=== PATIENT | male | born 1960 | race Hispanic/Latino ===

== ENCOUNTER 2018-09-22 05:45 | Inpatient (IN) | payer BC ==
[2018-09-19 14:14] LABS: EOSINOPHILS % (AUTO) 0.9 % (0.0-8.0); HEMATOCRIT 49.1 % (42-54); LYMPHOCYTES % (AUTO) 24.4 % (21.0-51.0); MEAN CORPUSCULAR HEMOGLOBIN 29.6 pg (27.0-33.0); MEAN CORPUSCULAR HGB CONC 34.3 g/dL (32.0-36.0); MEAN CORPUSCULAR VOLUME 86.2 fL (79-99); MONOCYTES % (AUTO) 6.8 % (3.0-13.0); NEUTROPHILS % (AUTO) 66.9 % (40.0-77.0); NUCLEATED RED BLOOD CELLS 0.1 % (0.0-0.19); PLATELET COUNT (AUTO) 228 K/uL (130-400); RED BLOOD CELL COUNT(AUTO) 5.69 MIL/uL (4.50-6.20); RED CELL DISTRIBUTION WIDTH 14.1 % (11.0-15.5); WHITE BLOOD COUNT (AUTO) 8.2 K/uL (4.8-10.8)
[2018-09-19 14:20] LABS: APPEARANCE,URINE Cloudy (CLEAR); BILIRUBIN,URINE Negative (NEGATIVE); COLOR,URINE Yellow (YELLOW); GLUCOSE, URINE (UA) >=1000 mg/dL (NEGATIVE); KETONES,URINE Trace mg/dL (NEGATIVE); LEUKOCYTE ESTERASE ,URINE Trace (NEGATIVE); NITRATE,URINE Negative (NEGATIVE); OCCULT BLOOD,URINE Negative (NEGATIVE); PROTEIN,URINE Negative (NEGATIVE)
[2018-09-19 14:21] VITALS: BP 132/72
[2018-09-19 14:21] LABS: CREATININE 0.9 mg/dL (0.5-1.5); POTASSIUM 4.3 mmol/L (3.5-5.1)
[2018-09-19 14:23] LABS: INR 0.99 (0.85-1.15); PARTIAL THROMBOPLASTIN TIME 26.4 SEC (26.3-35.5); PROTHROMBIN TIME 10.4 SEC (9.6-11.6)
[2018-09-19 14:37] VITALS: BP 132/72
[2018-09-19 14:57] LABS: AMORPHOUS SEDIMENT,UR Few /LPF (None Seen); BACTERIA,URINE None Seen /HPF (None Seen); RBC,URINE None Seen /HPF (0-1); SQUAMOUS EPITHELIAL CELL,UR None Seen /HPF (0-2); WBC,URINE 0-1 /HPF (0-1)
--- NOTE | 2018-09-19 17:04 | NUR ---
Spoke to Mehnaz Maloney inpatient coder (addiction counselor) and report ua has glucose of greater than 1000, no new orders.
[2018-09-22] VITALS (8 sets, daily range): BP systolic 117–154; BP diastolic 69–78
[~2018-09-22] VITALS: Ht 166.4 cm; Wt 77.8 kg
[~2018-09-22 05:45] MED LIST: CARV3.12 PO; GLYB5TAB8 PO; METF-444 PO
--- NOTE | 2018-09-22 06:10 | NUR ---
PRE-PROCEDURE RECEIVED SCHEDULED ADMISSION TO DAY 14 FOR SCHEDULED LHC. PT ACCOMPANIED BY . AWAKE IN NO ACUTE DISTRESS. CONNECTED TO CONTINUOUS CARDIOPULMONARY MONITORING. DENIES PAIN AT PRESENT TIME.
[2018-09-22] MEDS ORDERED: SODIUM CHLORIDE 0.9% 1000ML 1,000 ML IV ONE (06:23)
[2018-09-22] MEDS ORDERED: LISI10TA7 PO (06:50)
[2018-09-22] MEDS ORDERED: ASPI-555 PO (06:50)
[2018-09-22] MEDS ORDERED: SODIUM CHLORIDE 0.9% 1000ML 1,000 ML IV SCH (08:00)
[2018-09-22] MEDS ORDERED: IOHEXOL 350 MG/ML 100ML INFUS..BTL IV ONE (08:09)
[2018-09-22] MEDS ORDERED: IOHEXOL-350 50ML VIAL IV ONE (08:09)
[2018-09-22] MEDS ORDERED: LIDOCAINE HCL 2% 20ML ONE (08:09)
[2018-09-22] MEDS ORDERED: NITROGLYCERIN 5 MG/ML 10 ML VIAL IV ONE (08:09)
--- NOTE | 2018-09-22 08:18 | NUR ---
PROCEDURE TRANSFERRED TO HOUSING INSPECTOR BY VINNIE SELLERS RN VIA BED FOR [facility].
[2018-09-22] MEDS ORDERED: HEPARIN SODIUM 1000UNIT/ML 10ML VIAL ONE (08:44)
[2018-09-22] MEDS ORDERED: DEXTROSE 50%-WATER 50 ML DISP.SYRIN IV PRN ×2 (09:15→17:15)
[2018-09-22] MEDS ORDERED: GLUCAGON 1MG KIT 1 MG ML IM PRN ×2 (09:15→17:15)
--- NOTE | 2018-09-22 09:18 | NUR ---
POST-PROCEDURE RECEIVED BACK FROM MOLD STAMPER AND REPAIRER VIA BED S/P [facility] WITH PENDING SURGICAL CONSULT. AWAKE IN NO ACUTE DISTRESS. CONNECTED TO CONTINUOUS CARDIOPULMONARY MONITORING. CATH SITE WITH ANGIOSEAL TO RIGHT FEMORAL CLEAN, DRY, AND INTACT;SITE SOFT, NON-TENDER. BED IN LOWEST POSITION, CALL LIGHT W/IN REACH, AND SIDE RAILS UP X2. Addendum: 09/22/18 at 0950 by CASISDY ROSARIO RN RN REINFORCED EDUCATION REGARDING KEEPING RIGHT LEG STRAIGHT AND NOT RAISING HEAD UP. VERBALIZED UNDERSTANDING.
--- NOTE | 2018-09-22 10:15 | NUR ---
CONSULT DR. COTTER IN TO SEE PATIENT. PLAN OF CARE DISCUSSED WITH PT IN [place]. PLAN IS TO ADMIT PT FOR CABG IN AM. TELEPHONE SERVICE ADVISER NOTIFIED.
--- NOTE | 2018-09-22 10:25 | NUR ---
CONSULT DR. JOHNSON ANSWERING SERVICE CALLED FOR CONSULT.
--- NOTE | 2018-09-22 11:15 | NUR ---
REPORT REPORT CALLED TO MIRIAM SALTER USING [employer]. VERBALIZED UNDERSTANDING. INFORMED PT IS TO REMAIN NPO FOR SURGERY TODAY. Addendum: 09/22/18 at 1137 by CASSIDY ROSARIO RN RN NOTIFIED THAT DR. JOHNSON ANSWERING SERVICE WAS CALLED, BUT AWAITING RETURN PHONE CALL.
--- NOTE | 2018-09-22 11:18 | NUR ---
TRANSFER TRANSFERRED TO ROOM 220 VIA BED. AWAKE IN NO ACUTE DISTRESS. CATH SITE WITH ANGIOSEAL CLEAN, DRY, AND INTACT. SITE SOFT, NON-TENDER. DENIES PAIN.
--- NOTE | 2018-09-22 11:30 | NUR ---
ASSESSMENT ENCOUNTERED PT A&OX3, CALM COOPERATIVE AND DOES NOT APPEAR TO BE IN ANY DISTRESS NOR ANY NEURO DEFICITS PRESENT. RT GROIN SOFT NONTENDER WITH NO OOZING OR HEMATOMA PRESENT. DP/PT PULSES PALPABLE. PT ON BEDREST UNTIL 1230. CALL LIGHT WITHIN REACH, FAMILY AT BEDSIDE.
--- NOTE | 2018-09-22 13:00 | NUR ---
BEDREST COMPLETE RT GROIN SOFT NONTENDER WITH NO OOZING OR HEMATOMA PRESENT. DP/PT PULSES PALPABLE. PT IS AMBULATORY, GAIT STEADY AND STRONG WITH STAND BY ASSIST. CALL LIGHT WITHIN REACH, FAMILY AT BEDSIDE.
[2018-09-22] MEDS ORDERED: ACETAMINOPHEN 325 MG TAB PO PRN (17:15)
[2018-09-22] MEDS ORDERED: ONDANSETRON HCL 4 MG/2 ML VIAL IVP PRN (17:15)
[2018-09-22] MEDS ORDERED: TRAMADOL HCL 50 MG TABLET PO PRN ×2 (17:15)
[2018-09-22] MEDS: INSULIN HUMULIN R 100 UNIT/ML 3ML SQ SCH ×2 (17:26→20:15)
[2018-09-22] MEDS ORDERED: INSULIN HUMULIN R 100 UNIT/ML 3ML SQ SCH (21:00)
[2018-09-23] VITALS (27 sets, daily range): BP systolic 99–169; BP diastolic 51–86
[2018-09-23 05:12] LABS: HEMATOCRIT 45.1 % (42-54); MEAN CORPUSCULAR HGB CONC 33.8 g/dL (32.0-36.0); MEAN CORPUSCULAR VOLUME 85.7 fL (79-99); NUCLEATED RED BLOOD CELLS 0.1 % (0.0-0.19); PLATELET COUNT (AUTO) 220 K/uL (130-400); RED BLOOD CELL COUNT(AUTO) 5.26 MIL/uL (4.50-6.20); RED CELL DISTRIBUTION WIDTH 13.8 % (11.0-15.5); WHITE BLOOD COUNT (AUTO) 7.9 K/uL (4.8-10.8)
[2018-09-23 05:17] LABS: HEMOGLOBIN A1C 9.7 % (4.0-6.0)
[2018-09-23 05:21] LABS: INR 1.02 (0.85-1.15); PARTIAL THROMBOPLASTIN TIME 28.2 SEC (26.3-35.5); PROTHROMBIN TIME 10.7 SEC (9.6-11.6)
[2018-09-23 05:24] LABS: POTASSIUM 3.5 mmol/L (3.5-5.1)
[2018-09-23] MEDS: INSULIN HUMULIN R 100 UNIT/ML 3ML SQ SCH ×2 (05:27→11:30)
--- NOTE | 2018-09-23 07:30 | NUR ---
ASSESSMENT ENCOUNTERED PT A&OX3, CALM COOPERATIVE AND DOES NOT APPEAR TO BE IN ANY DISTRESS NOR ANY NEURO DEFICITS PRESENT. PT DENIES PAIN, SOB, NAUSEA. RT GROIN SOFT NONTENDER WITH NO OOZING OR HEMATOMA PRESENT. DP/PT PULSES PALPABLE. PT IS NPO FOR PENDING CABG BY DR COTTER. CALL LIGHT WITHIN REACH, FAMILY AT BEDSIDE.
[2018-09-23] MEDS ORDERED: ASPIRIN 81MG TAB.CHEW PO SCH (09:00)
[2018-09-23] MEDS ORDERED: CARVEDILOL 6.25 MG TABLET PO SCH (09:00)
[2018-09-23] MEDS ORDERED: LISINOPRIL 10 MG TABLET PO SCH (09:00)
[2018-09-23] MEDS ORDERED: NITROGLYCERIN 50 MG/D5% WATER 1 BOT ONE (11:40)
[2018-09-23] MEDS ORDERED: EPINEPHRINE 1 MG/ML 30ML VIAL IJ ONE (11:40)
[2018-09-23] MEDS ORDERED: SODIUM CHLORIDE 0.9% 1000ML 1,000 ML IV ONE (12:32)
[2018-09-23] MEDS: CEFAZOLIN SODIUM 1 GM VIAL IVP PRN ×3 (12:35→12:55)
[2018-09-23] MEDS ORDERED: OCTYL 2-CYANOACRYLATE 1 EACH TP ONE (12:49)
[2018-09-23] MEDS ORDERED: PAPAVERINE HCL 30 MG/ML 2ML VIAL ONE (12:49)
[2018-09-23] MEDS ORDERED: BACITRACIN 50,000 UNIT VIAL ONE (12:49)
[2018-09-23] MEDS ORDERED: LIDOCAINE PF 2% 5ML ABBOJECT ONE (12:52)
[2018-09-23] MEDS ORDERED: ESMOLOL HCL 10 MG/ML 10 ML VIAL ONE (12:52)
[2018-09-23] MEDS ORDERED: PROTAMINE SULFATE 10 MG/ML 25ML VIAL IV ONE (12:52)
[2018-09-23] MEDS ORDERED: SODIUM BICARB 50MEQ 50ML VIAL ONE (12:53)
[2018-09-23] MEDS ORDERED: HEPARIN SODIUM 1000UNIT/ML 10ML VIAL ONE (12:53)
[2018-09-23] MEDS ORDERED: EPINEPHRINE 1 MG/ML AMPULE ONE (12:53)
[2018-09-23] MEDS ORDERED: NOREPINEPHRINE BITARTRATE 1 MG/1 ML ML IV ONE (12:53)
[2018-09-23] MEDS ORDERED: AMINOCAPROIC ACID 250 MG/ML 20 ML VIAL IV ONE (12:53)
[2018-09-23] MEDS ORDERED: PROPOFOL 10 MG/ML 20ML VIAL IV ONE (12:54)
[2018-09-23] MEDS ORDERED: ROCURONIUM 10MG/1ML SYR 10 MG/ML ML ONE (12:54)
[2018-09-23] MEDS ORDERED: MIDAZOLAM HCL 1 MG/ML 5ML VIAL ONE (12:54)
[2018-09-23] MEDS ORDERED: FENTANYL CITRATE PF 50 MCG/1 ML 20ML VIAL IJ ONE (12:54)
[2018-09-23 13:16] LABS: ABG BASE EXCESS 0.1 mmol/L (-2.0-3.0); ABG HCO3 23.3 mmol/L (21.0-28.0); ABG OXYGEN SATURATION 99.3 % (95.0-99.0); ABG PCO2 34 mmHg (35-48)
[2018-09-23 14:48] LABS: ABG BASE EXCESS -4.9 mmol/L (-2.0-3.0); ABG HCO3 18.8 mmol/L (21.0-28.0); ABG OXYGEN SATURATION 99.3 % (95.0-99.0); ABG PCO2 31 mmHg (35-48)
[2018-09-23] MEDS ORDERED: SODIUM CHLORIDE 0.9% 500ML 500 ML IV SCH (14:53)
[2018-09-23] MEDS ORDERED: POTASSIUM PHOS 15 mMOL+NS250ML 250 ML IV PRN (15:00)
[2018-09-23] MEDS ORDERED: AMINOCAPROIC ACID 15,000 MG in SODIUM CHLORIDE 0.9% 250 ML IV SCH (15:00)
[2018-09-23] MEDS ORDERED: ACETAMINOPHEN 325 MG TAB PO PRN (15:00)
[2018-09-23] MEDS ORDERED: PROPOFOL 1000 MG/100 ML 100 ML IV PRN (15:00)
[2018-09-23] MEDS ORDERED: SODIUM CHLORIDE 0.9% 1000ML 1,000 ML IV SCH (15:00)
[2018-09-23] MEDS ORDERED: NOREPINEPHRINE 4MG/NS 250ML 250 ML IV PRN (15:00)
[2018-09-23] MEDS ORDERED: MORPHINE SULFATE 4 MG/1ML SYG IV PRN (15:00)
[2018-09-23] MEDS ORDERED: HYDROCODONE/ACETAMINOPHEN 5/325 MG TAB PO PRN (15:00)
[2018-09-23] MEDS ORDERED: MORPHINE SULFATE 2 MG/ML 1ML SYG IV PRN (15:00)
[2018-09-23] MEDS ORDERED: EPINEPHRINE 8 MG in DEXTROSE 5%-WATER 250 ML IV PRN (15:00)
[2018-09-23] MEDS ORDERED: ONDANSETRON HCL 4 MG/2 ML VIAL IV PRN (15:00)
[2018-09-23] MEDS ORDERED: TRAMADOL HCL 50 MG TABLET PO PRN (15:00)
[2018-09-23] MEDS ORDERED: DEXTROSE 50%-WATER 50 ML DISP.SYRIN IV PRN (15:00)
[2018-09-23] MEDS ORDERED: SODIUM CHLORIDE 0.9% 250 ML IV PRN (15:00)
[2018-09-23] MEDS ORDERED: ALBUMIN (HUMAN) 5% 250 ML IV PRN (15:00)
[2018-09-23] MEDS ORDERED: ACETAMINOPHEN 650 MG SUPPOSITORY RC PRN (15:00)
[2018-09-23] MEDS ORDERED: NITROGLYCERIN 50 MG/D5% WATER 250 BOT IV SCH (15:00)
[2018-09-23] MEDS ORDERED: GLUCAGON 1MG KIT 1 MG ML IM PRN (15:00)
[2018-09-23] MEDS ORDERED: SODIUM CHLORIDE 0.9% 10 ML VIAL IVP PRN (15:00)
--- NOTE | 2018-09-23 15:23 | NUR ---
RECEIVED PT FROM OR, POST CABG X3. ASSESSMENT COMPLETED NOTED. PT ORALLY INTUBATED,8.0 ETT AT 23CM LIP, AT PRESCRIBED VENT SETTINGS. SURGICAL DRESSINGS DRY AND INTACT. CHEST TUBE X 1 WITH SCANT SANGUINOUS OUTPUT, NO AIR LEAK NOTED. PT SR 74 ON BEDSIDE MONITOR WITH NO ECTOPY NOTED. HEMODYNAMICS NOTED IN EMR. FC TO GRAVITY WITH CLEAR YELLOW OUTPUT. P RT IJ CORDIS INTACT. PT ON AMICAR AT 50 ML/HR, LEVOPHED DRIP AT 2 MCGS/MIN. LEFT RADIAL ARTERIAL LINE INTACT. ALL LINES LEVELED AND CALIBRATED AND WITH OPTIMAL WAVEFORM. PT UNABLE TO OPEN EYES OR FOLLOW COMMANDS AT THIS TIME. NO S/S OF PAIN NOTED. LABS AND CXR COMPLETED ORDERED. BED LOCKED AND LOW. MONITORS ON AND ALARMS AUDIBLE.
[2018-09-23 15:51] LABS: HEMATOCRIT 37.4 % (42-54); MEAN CORPUSCULAR HEMOGLOBIN 28.7 pg (27.0-33.0); MEAN CORPUSCULAR HGB CONC 33.8 g/dL (32.0-36.0); MEAN CORPUSCULAR VOLUME 85.1 fL (79-99); PLATELET COUNT (AUTO) 165 K/uL (130-400); RED CELL DISTRIBUTION WIDTH 13.9 % (11.0-15.5); WHITE BLOOD COUNT (AUTO) 14.9 K/uL (4.8-10.8)
[2018-09-23] MEDS: INSULIN REGULAR, HUMAN 3ML 100 UNIT in SODIUM CHLORIDE 0.9% 99 ML IV SCH ×2 (16:01)
[2018-09-23 16:04] LABS: CREATININE 0.7 mg/dL (0.5-1.5); INR 1.13 (0.85-1.15); MAGNESIUM 1.3 mg/dL (1.80-2.40); PARTIAL THROMBOPLASTIN TIME 25.4 SEC (26.3-35.5); POTASSIUM 3.7 mmol/L (3.5-5.1); PROTHROMBIN TIME 11.8 SEC (9.6-11.6)
[2018-09-23] MEDS: CALCIUM GLUCONATE 1 GM in SODIUM CHLORIDE 0.9% 50 ML IV PRN ×4 (16:05→22:38)
[2018-09-23 16:07] LABS: ABG BASE EXCESS -1.3 mmol/L (-2.0-3.0); ABG HCO3 21.8 mmol/L (21.0-28.0); ABG OXYGEN SATURATION 98.1 % (95.0-99.0); ABG PCO2 32 mmHg (35-48)
[2018-09-23] MEDS: SODIUM BICARB 50MEQ 50ML VIAL IV PRN ×2 (16:09→17:20)
[2018-09-23] MEDS: MAGNESIUM 2GM PREMIX 50ML 50 ML IV PRN (16:20)
--- NOTE | 2018-09-23 16:44 | NUR ---
PATIENT'S FAMILY IN FOR POST OP VISIT AT [id number]. EXCHANGED PHONE NUMBERS WITH PATIENT'S DESTINEE ([phone]). ALL QUESTIONS ABOUT PATIENT'S CONDITION, PLAN OF CARE AND VISITING ANSWERED. PATIENT MOVING BUE AND NODS YES/NO. FAMILY WILL RETURN TOMORROW.
[2018-09-23] MEDS ORDERED: HEPARIN SODIUM 1000UNIT/ML 10ML VIAL IV ONE (16:57)
[2018-09-23] MEDS: POTASSIUM CHLORIDE 20MEQ/100ML 100 ML IV PRN ×3 (17:04→23:28)
[2018-09-23 17:12] LABS: ABG BASE EXCESS -2.3 mmol/L (-2.0-3.0); ABG HCO3 20.6 mmol/L (21.0-28.0); ABG OXYGEN SATURATION 95.2 % (95.0-99.0); ABG PCO2 31 mmHg (35-48)
[2018-09-23 18:50] LABS: ABG BASE EXCESS 1.9 mmol/L (-2.0-3.0); ABG HCO3 24.5 mmol/L (21.0-28.0); ABG OXYGEN SATURATION 98.5 % (95.0-99.0); ABG PCO2 33 mmHg (35-48)
[2018-09-23 19:59] LABS: ABG BASE EXCESS 2.7 mmol/L (-2.0-3.0); ABG HCO3 25.2 mmol/L (21.0-28.0); ABG OXYGEN SATURATION 98.7 % (95.0-99.0); ABG PCO2 33 mmHg (35-48)
[2018-09-23] MEDS: CEFAZOLIN SODIUM 1 GM VIAL IV SCH (20:29)
[2018-09-23] MEDS: FAMOTIDINE/PF 20 MG/2 ML VIAL IV SCH (20:30)
[2018-09-23 21:05] LABS: ABG BASE EXCESS 1.6 mmol/L (-2.0-3.0); ABG HCO3 25.4 mmol/L (21.0-28.0); ABG OXYGEN SATURATION 98.6 % (95.0-99.0); ABG PCO2 37 mmHg (35-48)
--- NOTE | 2018-09-23 21:17 | NUR ---
Extubation Extubation protocol was followed. Patient remained on ventilator Setting of SIMV rate of 4, Tidal Volume:650, PEEP:5, PS:10, Fio2:35% as per protocol Patient was hemodynamically stable. Vital signs remained within desired ranges, off al drips. After an hour, ABG was done and was within desired ranges(see labs). Patient remained awake, able to follow commands, sustain head lift, and equally strong handgrip. RT Javi at bedside to perform weaning readiness exercises. Patient Negative inspiratory force performed was -29.7, and vital capacity was 1100. Patient was given instructions on extubation and what was expected of him after extubation;(patient nodded). At 2117 patient was extubated, secretions were suction, and patient was immediately placed on cool aerosol mask with fio2 at 35%. Patient remained within desired/baseline vital signs, continued to saturate 98-100%, and remained breathing at a rate of 16-20breaths per minute. Will continue to monitor patient closely and follow up with ABG after 1 hr.
[2018-09-23 23:00] LABS: ABG BASE EXCESS 0.2 mmol/L (-2.0-3.0); ABG HCO3 25.1 mmol/L (21.0-28.0); ABG OXYGEN SATURATION 98.2 % (95.0-99.0); ABG PCO2 42 mmHg (35-48)
[2018-09-24] VITALS (20 sets, daily range): BP systolic 116–159; BP diastolic 55–77
[2018-09-24] MEDS: MAGNESIUM 2GM PREMIX 50ML 50 ML IV PRN (01:15)
[2018-09-24] MEDS: CEFAZOLIN SODIUM 1 GM VIAL IV SCH ×2 (04:18→12:23)
[2018-09-24 07:44] LABS: ABG BASE EXCESS 1.1 mmol/L (-2.0-3.0); ABG HCO3 25.3 mmol/L (21.0-28.0); ABG OXYGEN SATURATION 98.4 % (95.0-99.0); ABG PCO2 39 mmHg (35-48)
[2018-09-24 08:04] LABS: HEMATOCRIT 42.9 % (42-54); MEAN CORPUSCULAR HEMOGLOBIN 29.2 pg (27.0-33.0); MEAN CORPUSCULAR HGB CONC 34.3 g/dL (32.0-36.0); MEAN CORPUSCULAR VOLUME 85.1 fL (79-99); PLATELET COUNT (AUTO) 194 K/uL (130-400); RED BLOOD CELL COUNT(AUTO) 5.04 MIL/uL (4.50-6.20); RED CELL DISTRIBUTION WIDTH 14.1 % (11.0-15.5); WHITE BLOOD COUNT (AUTO) 13.7 K/uL (4.8-10.8)
[2018-09-24 08:36] LABS: CREATININE 0.7 mg/dL (0.5-1.5); MAGNESIUM 2.4 mg/dL (1.80-2.40); PHOSPHORUS 4.2 mg/dL (2.5-4.9); POTASSIUM 3.7 mmol/L (3.5-5.1)
[2018-09-24 08:54] LABS: PARTIAL THROMBOPLASTIN TIME 23.6 SEC (26.3-35.5); PROTHROMBIN TIME 10.5 SEC (9.6-11.6)
[2018-09-24] MEDS: FAMOTIDINE/PF 20 MG/2 ML VIAL IV SCH ×2 (08:59→20:07)
[2018-09-24] MEDS ORDERED: METOPROLOL TARTRATE 25 MG TAB PO SCH ×2 (09:00→09:45)
[2018-09-24] MEDS: ATORVASTATIN CALCIUM 40 MG TABLET PO SCH (09:10)
[2018-09-24] MEDS: ASPIRIN 81MG TAB.CHEW PO SCH (09:10)
--- NOTE | 2018-09-24 09:30 | NUR ---
MD ROUNDS DR. TORRES IN TO SEE PATIENT. MD REVIEWED CHART AND VIEWED CXR. NEW ORDERS RECEIVED. UPDATED ON NEW ORDERS FROM DR. HUSTON. CHANGES MADE TO METOPROLOL BY DR. TORRES. PATIENT UP DATED ON POC. WILL CONT TO MONITOR.
--- NOTE | 2018-09-24 10:16 | NUR ---
AIDA Ramsey met with pt who lives in [place] with his Mary Ann [phone]. Pt works, is independent, drives, no DME or HH. Sees Dr Odell and uses [facility]. Plan is home at [place] Addendum: 09/24/18 at 1017 by JULIO REESE Amended: Links added.
[2018-09-24] MEDS: CALCIUM GLUCONATE 1 GM in SODIUM CHLORIDE 0.9% 50 ML IV PRN ×2 (10:33→10:56)
[2018-09-24] MEDS: TRAMADOL HCL 50 MG TABLET PO PRN ×2 (10:41→23:21)
[2018-09-24] MEDS: METOCLOPRAMIDE 10 MG/2 ML VIAL IVP SCH ×3 (12:23→20:07)
[2018-09-24] MEDS: POTASSIUM CHLORIDE 20MEQ/100ML 100 ML IV PRN (16:45)
--- NOTE | 2018-09-24 16:50 | NUR ---
PT NOTED NOT TO BE DRINKING WATER. STATES HE WAS TOLD NOT TO DRINK TOO MUCH WATER. INTAKE HAS BEEN POOR, PATIENT IS ENCOURAGED TO DRINK WATER.
[2018-09-24] MEDS: INSULIN REGULAR, HUMAN 3ML 100 UNIT in SODIUM CHLORIDE 0.9% 99 ML IV SCH ×2 (17:05)
[2018-09-24] MEDS: METOPROLOL TARTRATE 25 MG TAB PO SCH (20:08)
[2018-09-25] VITALS (23 sets, daily range): BP systolic 109–144; BP diastolic 61–80
[2018-09-25 04:29] LABS: HEMATOCRIT 42.8 % (42-54); MEAN CORPUSCULAR HEMOGLOBIN 28.7 pg (27.0-33.0); MEAN CORPUSCULAR HGB CONC 33.6 g/dL (32.0-36.0); MEAN CORPUSCULAR VOLUME 85.6 fL (79-99); NUCLEATED RED BLOOD CELLS 0.1 % (0.0-0.19); PLATELET COUNT (AUTO) 180 K/uL (130-400); RED CELL DISTRIBUTION WIDTH 14.2 % (11.0-15.5)
[2018-09-25 04:40] LABS: CREATININE 0.8 mg/dL (0.5-1.5); POTASSIUM 3.5 mmol/L (3.5-5.1)
[2018-09-25] MEDS: POTASSIUM CHLORIDE 20MEQ/100ML 100 ML IV PRN ×2 (05:30→08:09)
[2018-09-25] MEDS: TRAMADOL HCL 50 MG TABLET PO PRN ×2 (05:56→17:31)
[2018-09-25] MEDS: INSULIN HUMULIN R 100 UNIT/ML 3ML SQ SCH ×4 (07:30→21:20)
[2018-09-25] MEDS: METOPROLOL TARTRATE 25 MG TAB PO SCH ×2 (08:10→20:58)
[2018-09-25] MEDS: ASPIRIN 81MG TAB.CHEW PO SCH (08:10)
[2018-09-25] MEDS: METOCLOPRAMIDE 10 MG/2 ML VIAL IVP SCH ×3 (08:10→16:21)
[2018-09-25] MEDS: ATORVASTATIN CALCIUM 40 MG TABLET PO SCH (08:10)
[2018-09-25] MEDS: FAMOTIDINE/PF 20 MG/2 ML VIAL IV SCH ×2 (08:44→20:58)
--- NOTE | 2018-09-25 16:43 | NUR ---
MD ROUNDS DR. COTTER IN TO SEE PATIENT. MD REVIEWED CHEST XRAY AND SPOKE WITH PATIENT. INFORMED HIM DM MEDS NEED TO BE RESTARTED AND HE NOTED PT'S HEART RATE IN THE LOW 100s. MD MADE AWARE PATIENT IS ALREADY ON METOPROLOL 25 MG PO BID. INSTRUCTED TO CONTINUE WITH DOSE. NEW ORDERS RECEIVED TO BE CARRIED OUT. PT MADE AWARE OF POC. F/C REMOVED WITHOUT COMPLICATIONS. PT IS DTV BY MN. PT VOICED UNDERSTANDING.
[2018-09-25] MEDS: LOSARTAN 50 MG TABLET PO SCH (20:57)
[2018-09-25] MEDS ORDERED: FUROSEMIDE 20 MG TABLET ONE (21:46)
[2018-09-25] MEDS: FUROSEMIDE 20 MG TABLET PO SCH (21:47)
--- NOTE | 2018-09-25 22:30 | NUR ---
Chest tube removed as ordered. Patient tolerated procedure well. Will continue to monitor patient closely.
[2018-09-26] VITALS (11 sets, daily range): BP systolic 98–129; BP diastolic 62–81
--- NOTE | 2018-09-26 00:38 | NUR ---
Moderate amount of bleeding noted after removal of CVL to the right jugular vein. Topical hemostat dressing applied. Applied pressure to bleeding site for about one hour and 30 minutes. Bleeding decreased, patient is hemodynamically stable. Will continue to monitor patient closely.
[2018-09-26 03:09] LABS: CREATININE 0.8 mg/dL (0.5-1.5); POTASSIUM 3.4 mmol/L (3.5-5.1)
[2018-09-26 03:17] LABS: HEMATOCRIT 40.7 % (42-54); MEAN CORPUSCULAR HEMOGLOBIN 29.8 pg (27.0-33.0); MEAN CORPUSCULAR HGB CONC 35.2 g/dL (32.0-36.0); MEAN CORPUSCULAR VOLUME 84.6 fL (79-99); NUCLEATED RED BLOOD CELLS 0.1 % (0.0-0.19); PLATELET COUNT (AUTO) 177 K/uL (130-400); RED BLOOD CELL COUNT(AUTO) 4.81 MIL/uL (4.50-6.20); RED CELL DISTRIBUTION WIDTH 13.8 % (11.0-15.5); WHITE BLOOD COUNT (AUTO) 12.7 K/uL (4.8-10.8)
[2018-09-26 03:42] LABS: INR 1.02 (0.85-1.15); PARTIAL THROMBOPLASTIN TIME 34.7 SEC (26.3-35.5); PROTHROMBIN TIME 10.7 SEC (9.6-11.6)
[2018-09-26] MEDS: INSULIN HUMULIN R 100 UNIT/ML 3ML SQ SCH ×4 (06:16→20:25)
[2018-09-26] MEDS ORDERED: ENOXAPARIN SODIUM 30 MG/0.3 ML SQ SCH ×2 (09:00→21:00)
--- NOTE | 2018-09-26 09:05 | NUR ---
DRSG TO RIGHT NECK AREA NOTED TO BE BLEEDING. DRSG REMOVED AND MANUAL PRESSURE APPLIED WITH THE USE OF A D-STAT. MANUAL PRESSURE APPLIED FOR 30 MIN. NO FURTHER BLEEDING NOTED. D-STAT DRESSING SECURED. INSTRUCTED PT. ON PRESSURE APPLICATION TO RIGHT NECK AREA DRSG IF NEEDS TO COUGH OR SNEEZE, VERBALIZED UNDERSTANDING AND RETURN DEMONSTRATION PERFORMED. CALL LIGHT WITHIN REACH, VERBALIZED ABILITY TO USE. ROOM DOOR OPEN, VISIBLE FROM NURSE'S STATION.
[2018-09-26] MEDS ORDERED: POTASSIUM CHLORIDE 10% ELIXIR 20 MEQ/15 ML UDCUP PO PRN (09:30)
[2018-09-26] MEDS: ATORVASTATIN CALCIUM 40 MG TABLET PO SCH (09:44)
[2018-09-26] MEDS: METOPROLOL TARTRATE 25 MG TAB PO SCH ×2 (09:44→20:18)
[2018-09-26] MEDS: GLYBURIDE 5 MG TABLET PO SCH (09:44)
[2018-09-26] MEDS: METFORMIN HCL 500 MG TAB.SR.24H PO SCH (09:45)
[2018-09-26] MEDS: ASPIRIN 81MG TAB.CHEW PO SCH (09:45)
[2018-09-26] MEDS: FAMOTIDINE/PF 20 MG/2 ML VIAL IV SCH ×2 (09:46→20:18)
--- NOTE | 2018-09-26 10:15 | NUR ---
RESTING IN BED WITH HOB AT 30 DEGREES, RESP.'S EVEN AND UNLABORED. EYES CLOSED. CALL LIGHT WITHIN REACH.
--- NOTE | 2018-09-26 11:38 | NUR ---
DR. FAN IN ROOM ASSESSING/SPEAKING WITH PT. DR. FAN UPDATED ON CURRENT MEDICATION REGIMEN AND VS TREND; VERBALIZED UNDERSTANDING. NO ORDERS RECEIVED AT THIS TIME.
[2018-09-26] MEDS: POTASSIUM CHLORIDE 20 MEQ ERTAB PO PRN ×2 (11:40→16:34)
[2018-09-26] MEDS: TRAMADOL HCL 50 MG TABLET PO PRN (18:03)
--- NOTE | 2018-09-26 19:00 | NUR ---
Received bedside report,pt. remained stable,for discharge planning in am.
[2018-09-26] MEDS: LOSARTAN 50 MG TABLET PO SCH (20:18)
[2018-09-27 03:43] VITALS: BP 107/71
[2018-09-27] MEDS: INSULIN HUMULIN R 100 UNIT/ML 3ML SQ SCH ×2 (06:21→13:09)
[2018-09-27 07:40] VITALS: BP 106/67
[2018-09-27] MEDS ORDERED: FAMOTIDINE 20MG TAB 20 MG TAB ONE (08:45)
[2018-09-27 09:17] LABS: HEMATOCRIT 39.1 % (42-54); MEAN CORPUSCULAR HEMOGLOBIN 29.2 pg (27.0-33.0); MEAN CORPUSCULAR HGB CONC 34.2 g/dL (32.0-36.0); MEAN CORPUSCULAR VOLUME 85.4 fL (79-99); PLATELET COUNT (AUTO) 253 K/uL (130-400); RED BLOOD CELL COUNT(AUTO) 4.58 MIL/uL (4.50-6.20); RED CELL DISTRIBUTION WIDTH 14.1 % (11.0-15.5); WHITE BLOOD COUNT (AUTO) 10.4 K/uL (4.8-10.8)
[2018-09-27 09:25] LABS: CREATININE 0.9 mg/dL (0.5-1.5); POTASSIUM 3.5 mmol/L (3.5-5.1)
[2018-09-27] MEDS: METFORMIN HCL 500 MG TAB.SR.24H PO SCH (09:47)
[2018-09-27] MEDS: ASPIRIN 81MG TAB.CHEW PO SCH (09:47)
[2018-09-27] MEDS: METOPROLOL TARTRATE 25 MG TAB PO SCH (09:47)
[2018-09-27] MEDS: ATORVASTATIN CALCIUM 40 MG TABLET PO SCH (09:47)
[2018-09-27] MEDS: FUROSEMIDE 20 MG TABLET PO SCH (09:48)
[2018-09-27] MEDS: POTASSIUM CHLORIDE 20 MEQ ERTAB PO PRN ×2 (09:54→13:08)
[2018-09-27 09:55] LABS: LYMPHOCYTES % (MANUAL) 15 % (22-44); MONOCYTES % (MANUAL) 9 % (2-9); SEGMENTED NEUTROPHILS % 76 % (40-70)
[2018-09-27] MEDS: GLYBURIDE 5 MG TABLET PO SCH (09:55)
[2018-09-27 09:56] LABS: PLATELET MORPHOLOGY COMMENT ADEQUATE
[2018-09-27 10:07] LABS: MAN.DIFF COMMENT-IMPRESSION MANUAL DIFFERENTIAL
[2018-09-27 11:18] VITALS: BP 109/69
[2018-09-27] MEDS ORDERED: METO25 PO (11:21)
[2018-09-27] MEDS ORDERED: TRAM50TA4 PO (11:21)
[2018-09-27] MEDS ORDERED: LOSA50TA2 PO (11:21)
[2018-09-27] MEDS ORDERED: ATOR40TA69 PO (11:21)
[2018-09-27] MEDS ORDERED: FURO20TA6 PO (11:21)
--- NOTE | 2018-09-27 15:55 | NUR ---
DISCHARGE EDUCATION: PENT 20 MIN WITH PT, SPOUSE AND DAUGHTER ON EDUCATION OF S/S OF INFECTION; WHEN TO GO TO ER: WHEN TO CALL MD; STERNAL PRECAUTIONS; INFECTION CONTROL - DO NOT WORK WITH HIS CHICKENS OR LIVESTOCK AND KEEP INCISIONS CLEAN AND DRY; AND REVIEW OF MEDICATIONS. QUESTIONS ANSWERED AND PT COMMUNICATES UNDERSTANDING - DAUGHTER SERVED BATTERY CHARGER TESTER.
[2018-09-27] MEDS ORDERED: FAMOTIDINE 20MG TAB 20 MG TAB PO SCH (21:00)
== END 2018-09-27 16:06 | disposition home or self-care (01) | DRG 234 ==
LOC: DAH 05:45 → DAHIP 05:46 → 2DH 11:42 → 2CV 09-23 12:59 → 2CH 09-24 07:26 → 2AH 09-26 15:34
PROVIDERS: ADMIT Thoracic Surgery (Cardiothoracic Vascular Surgery); ATTEND Thoracic Surgery (Cardiothoracic Vascular Surgery)
PROC: 4A023N7 Measurement of Cardiac Sampling and Pressure, Left Heart, Percutaneous Approach (ICD-10-PCS; principal; 2018-09-22)
PROC: B2111ZZ Fluoroscopy of Multiple Coronary Arteries using Low Osmolar Contrast (ICD-10-PCS; 2018-09-22)
PROC: B2151ZZ Fluoroscopy of Left Heart using Low Osmolar Contrast (ICD-10-PCS; 2018-09-22)
PROC: 021109W Bypass Coronary Artery, Two Arteries from Aorta with Autologous Venous Tissue, Open Approach (ICD-10-PCS; 2018-09-23)
PROC: 06BQ4ZZ Excision of Left Saphenous Vein, Percutaneous Endoscopic Approach (ICD-10-PCS; 2018-09-23)
PROC: 06BP4ZZ Excision of Right Saphenous Vein, Percutaneous Endoscopic Approach (ICD-10-PCS; 2018-09-23)
PROC: 02100Z9 Bypass Coronary Artery, One Artery from Left Internal Mammary, Open Approach (ICD-10-PCS; 2018-09-23 12:00)
DX: I25.110 Atherosclerotic heart disease of native coronary artery with unstable angina pectoris (principal); I10 Essential (primary) hypertension; E11.9 Type 2 diabetes mellitus without complications; I42.9 Cardiomyopathy, unspecified; E78.5 Hyperlipidemia, unspecified; Z74.01 Bed confinement status; Z79.899 Other long term (current) drug therapy
CPT/HCPCS: 36415; 71045; 80048; 80061; 81001; 82330; 82435; 82803; 82947; 82948; 83036; 83605; 83735; 84100; 84132; 84295; 85018; 85025; 85027; 85610; 85730; 86850; 86900; 86901; 86922; 93005; 93458; 93880; 94002; 94010; 94150; 97039; A4606; A7048; C1760; C1894; G0378; J0171; J0610; J0690; J1644; J1650; J1815; J2001; J2250; J2270; J2440; J2704; J2720; J2765; J3010; J3475; J3480; J3490; J7030; J7040; Q9967

== ENCOUNTER 2019-05-31 10:19 | Emergency (ER) | payer BC, OTHER ==
[~2019-05-31 10:19] MED LIST changes: +ASPI-555 PO; +ATOR40TA69 PO; -CARV3.12 PO; +FURO20TA6 PO; +LOSA50TA2 PO; +METO25 PO; +TRAM50TA4 PO
[2019-05-31] MEDS ORDERED: ASPIRIN 325 MG TABLET ONE (10:30)
[2019-05-31 10:51] LABS: BASOPHILS % (AUTO) 0.6 % (0.0-5.0); EOSINOPHILS % (AUTO) 1.1 % (0.0-8.0); HEMATOCRIT 50.5 % (42-54); LYMPHOCYTES % (AUTO) 29.1 % (21.0-51.0); MEAN CORPUSCULAR HEMOGLOBIN 28.1 pg (27.0-33.0); MEAN CORPUSCULAR HGB CONC 33.3 g/dL (32.0-36.0); MEAN CORPUSCULAR VOLUME 84.4 fL (79-99); MONOCYTES % (AUTO) 6.7 % (3.0-13.0); PLATELET COUNT (AUTO) 224 K/uL (130-400); RED BLOOD CELL COUNT(AUTO) 5.98 MIL/uL (4.50-6.20); RED CELL DISTRIBUTION WIDTH 13.2 % (11.0-15.5); WHITE BLOOD COUNT (AUTO) 6.2 K/uL (4.8-10.8)
[2019-05-31 11:05] LABS: CREATININE 0.9 mg/dL (0.5-1.5); POTASSIUM 4.1 mmol/L (3.5-5.1)
[2019-05-31 11:10] LABS: ALBUMIN 3.8 g/dL (3.5-5.0); BILIRUBIN,TOTAL 0.4 mg/dL (0.2-1.0); TOTAL PROTEIN, SERUM 7.4 g/dL (6.0-8.3)
[2019-05-31 11:47] LABS: INR 0.94 (0.85-1.15); PARTIAL THROMBOPLASTIN TIME 27.3 SEC (26.3-35.5); PROTHROMBIN TIME 9.9 SEC (9.6-11.6)
[2019-05-31 12:05] LABS: B-TYPE NATRIURETIC PEPTIDE 16 pg/mL (0-100)
[2019-05-31 13:19] LABS: APPEARANCE,URINE Clear (CLEAR); BILIRUBIN,URINE Negative (NEGATIVE); COLOR,URINE Yellow (YELLOW); GLUCOSE, URINE (UA) Negative (NEGATIVE); KETONES,URINE Negative (NEGATIVE); LEUKOCYTE ESTERASE ,URINE Trace (NEGATIVE); NITRATE,URINE Negative (NEGATIVE); OCCULT BLOOD,URINE Negative (NEGATIVE); PROTEIN,URINE Negative (NEGATIVE); UROBILINOGEN,URINE 0.2 mg/dL (0.2-1.0)
[2019-05-31 13:27] LABS: AMPHET/METH SCREEN,URINE NEGATIVE (NEGATIVE); BARBITURATE SCREEN, URINE NEGATIVE (NEGATIVE); BENZODIAZEPINES SCREEN,URINE NEGATIVE (NEGATIVE); CANNABINOID SCREEN,URINE NEGATIVE (NEGATIVE); COCAINE SCREEN,URINE NEGATIVE (NEGATIVE); OPIATE SCREEN,URINE NEGATIVE (NEGATIVE); PHENCYCLIDINE SCREEN,URINE NEGATIVE (NEGATIVE)
[2019-05-31 13:32] LABS: BACTERIA,URINE Rare /HPF (None Seen); SQUAMOUS EPITHELIAL CELL,UR Rare /HPF (0-2); WBC,URINE 0-1 /HPF (0-1)
== END 2019-05-31 15:31 | disposition home or self-care (01) ==
LOC: EDH 10:19
DX: R07.89 Other chest pain (principal); I10 Essential (primary) hypertension; E11.9 Type 2 diabetes mellitus without complications; I25.810 Atherosclerosis of coronary artery bypass graft(s) without angina pectoris
CPT/HCPCS: 36415; 71045; 80053; 80305; 81001; 82550; 83880; 84484; 85025; 85610; 85730; 93005